=== PATIENT | female | born 1995 | race African-American/Black ===

== ENCOUNTER 2023-11-03 18:15 | Emergency (ER) | payer OTHER ==
[2023-11-03 18:21] VITALS: BP 129/73; PULSE 100; RESP 18; TEMP 98.9; BMI 34.4
[2023-11-03] MEDS ORDERED: ACETAMINOPHEN 500 MG TABLET (FP) ONE (18:45)
[2023-11-03] MEDS: ACETAMINOPHEN 500 MG TABLET (FP) PO ONE (18:51)
[2023-11-03] MEDS ORDERED: IBUPROFEN 600 MG TABLET (FP) PO ONE (20:04)
[2023-11-03] MEDS: IBUPROFEN 600 MG TABLET (FP) PO ONE (20:05)
== END 2023-11-03 20:30 | disposition home or self-care (01) ==
LOC: JER 18:15 → JERFT 18:15
DX: S83.92XA Sprain of unspecified site of left knee, initial encounter (principal); X50.1XXA Overexertion from prolonged static or awkward postures, initial encounter
CPT/HCPCS: 73562-TC-LT-FY; 99283-25